=== PATIENT | female | born 1965 | race Caucasian/White ===

== ENCOUNTER 2019-04-09 18:28 | Emergency (ER) | payer MEDICAID ==
--- NOTE | 2019-04-09 19:06 | EDM.PDOC ---
ED HPI GENERAL MEDICAL PROBLEM - General Chief Complaint: ENT Problem Stated Complaint: tooth pain Time Seen by Provider: 04/09/19 18:50 Source of Information: Reports: Patient History Limitations: Reports: No Limitations - History of Present Illness INITIAL COMMENTS - FREE TEXT/NARRATIVE: Lorena is a 53-year-old female who presents today for evaluation and treatment of an infected tooth. She reports pain for the last few days. She reports pain and swelling to the left lower jaw. Reports that it is a "series of teeth ". That is causing her distress. She states that she is to have her bottom plate done but has been unable to afford this. Her last visit to dental was about 4 months ago. She reports subjective fevers, chills and nausea. She denies any vomiting. She has been taking [id number] Tylenol and Motrin with little relief. Reports that she is only on lisinopril for medications. Left Tooth/Teeth Pain Score (Numeric/FACES): 7 - Related Data Allergies Allergy/AdvReac Type Severity Reaction Status Date / Time amoxicillin Allergy Rash Verified 04/09/19 18:38 Penicillins Allergy Rash Verified 04/09/19 18:38 Sulfa (Sulfonamide Allergy Rash Verified 04/09/19 18:38 Antibiotics) Home Meds: Home Meds Chlorhexidine Gluconate [Peridex] 15 ml MM BID #1 mouthwash 04/09/19 [Rx] Clindamycin HCl 300 mg PO Q6H #40 capsule 04/09/19 [Rx] Lisinopril [Zestril] 10 mg PO DAILY 04/09/19 [History] Past Medical History Gastrointestinal History: Reports: GERD SAW BOSS History: Reports: Other (See Below) Other SAW BOSS History: - Past Surgical History Female Surgical History: Reports: Section Social & Family History - Tobacco Use Smoking Status *Q: Current Every Day Smoker Years of Tobacco use: 40 Packs/Tins Daily: 0.2 - Caffeine Use Caffeine Use: Reports: None - Recreational Drug Use Recreational Drug Use: No ED ROS ENT - Review of Systems Review Of Systems: See Below Constitutional: Reports: Fever, Chills HEENT: Reports: Other (left lower teeth pain and swelling; no bad taste in her mouth) GI/Abdominal: Reports: Nausea. Denies: Vomiting ED EXAM, ENT - Physical Exam Exam: See Below Exam Limited By: No Limitations General Appearance: Alert, WD/WN, No Apparent Distress Eye Exam: Bilateral Eye: Normal Inspection, PERRL Ears: Normal External Exam, Normal Canal, Hearing Grossly Normal, Normal TMs Nose: Normal Inspection Mouth/Throat: Normal Inspection, Dental Tenderness, Gum Swelling (and erythema) , Other (upper teeth absent, upper denture in place. Teeth 32-28 absent. # 22- 19 severe carries, no obvious abscess). No: Dental Abcess Respiratory/Chest: No Respiratory Distress, Lungs Clear, Normal Breath Sounds Cardiovascular: Normal Peripheral Pulses, Regular Rate, Rhythm, No Murmur Neurological: Alert, Oriented, Normal Cognition Psychiatric: Normal Affect, Normal Mood Skin: Warm, Dry, Normal Color Course - Vital Signs Last Recorded V/S: Last Vital Signs Temp 98.6 F 04/09/19 18:35 Pulse 77 04/09/19 18:35 Resp 16 04/09/19 18:35 BP 122/88 04/09/19 18:35 Pulse Ox 99 04/09/19 18:35 - Re-Assessments/Exams Free Text/Narrative Re-Assessment/Exam: 04/09/19 19:00 Patient searched on [place] [facility] RADAR OPERATOR/NAVIGATOR Aware. She was given a 30 day RX of oxycodone 15mg # 90 on 03-22-2019. She may use this for pain. She did not reprot this to myself when asked about meds. Also failed to mention the gabapentin she has been prescribed. Discharge instructions as documented. Departure - Departure Time of Disposition: 19:00 Disposition: Home, Self-Care 01 Condition: Good Clinical Impression: Dental caries extending into dentin - Discharge Information *PRESCRIPTION DRUG MONITORING PROGRAM REVIEWED*: Yes *COPY OF PRESCRIPTION DRUG MONITORING REPORT IN PATIENT JEAN PIERRE: No Prescriptions: Chlorhexidine Gluconate [Peridex] 15 ml MM BID #1 mouthwash Clindamycin HCl 300 mg PO Q6H #40 capsule Referrals: PCP,None [Primary Care Provider] - Lillian Meléndez NP [Ordering Only Provider] - Forms: ED Department Discharge Additional Instructions: Clindamycin 1 Every 6 hours for 10 days. Take this with food. Recommend yogurt or probiotics to help reduce side effects. use The Peridex mouthwash swish and spit 15 mils twice a day. Swish for about 30 seconds Follow-up with a dentist as soon as you are able to. Utilize [id number] Tylenol and Motrin for pain relief. You may also try topical products such as clove oil or Orajel for additional pain relief. Please return to the ER if your symptoms change or worsen. Sepsis Event Note - Evaluation Sepsis Screening Result: No Definite Risk - Focused Exam Vital Signs: Vital Signs Temp Pulse Resp BP Pulse Ox 04/09/19 18:35 98.6 F 77 16 122/88 99 Date Exam was Performed: 04/09/19 Time Exam was Performed: 19:57
== END 2019-04-09 19:20 | disposition home or self-care (01) ==
LOC: JD.ED 18:28
DX: K02.9 Dental caries, unspecified (principal); F17.210 Nicotine dependence, cigarettes, uncomplicated; Z88.0 Allergy status to penicillin; Z88.2 Allergy status to sulfonamides; Z88.1 Allergy status to other antibiotic agents
CPT/HCPCS: 99282

== ENCOUNTER 2019-08-26 06:46 | Emergency (ER) | payer MEDICAID ==
[2019-08-26] MEDS ORDERED: HYDROmorphone 0.5 MG/0.5 ML Syringe IVPUSH ONE ×3 (07:18→09:28)
[2019-08-26] MEDS: Sodium Chloride 0.9% 10 ML Syringe FLUSH PRN ×2 (07:25→07:42)
[2019-08-26] MEDS ORDERED: Metoclopramide 10 MG/2 ML SDV IVPUSH ONE (07:34)
--- NOTE | 2019-08-26 08:10 | CT ---
CT abdomen and pelvis Technique: Multiple axial sections were obtained from above the dome of the diaphragm inferiorly through the pubic symphysis. Intravenous and oral contrast was not utilized. Study has been performed as a ureteral stone protocol. Findings: Inflammatory type change is seen around the left kidney. Left kidney collecting system is dilated. These findings are caused by a 4 mm obstructing stone located within the left UPJ. No other ureteral calculi are seen within the right or left ureters. Small nonobstructing calculus is noted within the lower right kidney measuring less than 5 mm in size. No other renal calculi are seen. Other findings: Visualized lung bases shows a nodule within the right base measuring 7 mm. Noncontrast appearance of the liver and spleen appears within normal limits. Adrenal glands show no nodule. Pancreas is normal. Gallbladder contains no calcified gallstones. Aorta shows no aneurysm. No retroperitoneal adenopathy or mesenteric abnormalities are seen. Appendix is seen which is normal in size. No pelvic mass or adenopathy is seen. No free fluid is seen. Bone window settings were reviewed. No acute osseous finding is seen. Impression: 1. Findings compatible with obstructing proximal left ureteral stone located at the UPJ measuring 4 mm. 2. 7 mm nodule within the right lung base. Recommend follow-up noncontrast chest CT in 6 months which would occur in February or March,. 3. Nonobstructing stone within the inferior right kidney measuring less than 5 mm. Diagnostic code #3 This report was dictated in MDT
[2019-08-26] MEDS ORDERED: Ketorolac 30 MG/ML SDV IVPUSH ONE (08:56)
--- NOTE | 2019-08-26 09:39 | EDM.PDOC ---
ED HPI GENERAL MEDICAL PROBLEM - General Chief Complaint: Flank Pain Stated Complaint: [facility] Time Seen by Provider: 08/26/19 07:10 Source of Information: Reports: Patient, RN Notes Reviewed - History of Present Illness INITIAL COMMENTS - FREE TEXT/NARRATIVE: 53 yr old female with onset of L back pain about 5 to 6 hrs ago. Continues severe cramping pain L back at rest, not worse or better with movement. Has vomited once, still nauseated. No fever, chills or voiding sx. Left Flank Pain Score (Numeric/FACES): 10 - Related Data Allergies Allergy/AdvReac Type Severity Reaction Status Date / Time amoxicillin Allergy Severe Rash Verified 08/26/19 06:51 Penicillins Allergy Severe Rash Verified 08/26/19 06:51 Sulfa (Sulfonamide Allergy Severe Rash Verified 08/26/19 06:51 Antibiotics) Home Meds: Home Meds lisinopriL [Zestril] 10 mg PO DAILY 04/09/19 [History] Acetaminophen/oxyCODONE [Percocet 325-5 MG] 1 each PO Q6HR PRN #14 tab 08/26/19 [Rx] Gabapentin [Neurontin] 400 mg PO TID 08/26/19 [History] Omeprazole 20 mg PO DAILY 08/26/19 [History] Ondansetron [Zofran ODT] 4 mg PO Q6H PRN #10 tab.dis 08/26/19 [Rx] Sertraline HCl 100 mg PO DAILY 08/26/19 [History] Past Medical History Gastrointestinal History: Reports: GERD 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 Denies: Fever, Chills HEENT: Reports: No Symptoms Respiratory: Reports: No Symptoms Cardiovascular: Reports: No Symptoms GI/Abdominal: Reports: Nausea, Vomiting. Denies: Abdominal Pain, Hematochezia, Melena Musculoskeletal: Reports: No Symptoms Skin: Reports: No Symptoms Neurological: Reports: No Symptoms ED EXAM, RENAL/ - Physical Exam Exam: See Below General Appearance: Alert, Moderate Distress Eye Exam: Bilateral Eye: PERRL Head: Atraumatic Neck: Supple Respiratory/Chest: No Respiratory Distress, Lungs Clear, Normal Breath Sounds Cardiovascular: Regular Rate, Rhythm GI/Abdominal: Soft, Non-Tender Back Exam: CVA Tenderness (L) Extremities: Normal Inspection, Normal Range of Motion Neurological: Alert, Oriented, No Motor/Sensory Deficits Skin Exam: Warm, Dry, Normal Color Course - Vital Signs Last Recorded V/S: Last Vital Signs Temp 99.0 F 08/26/19 06:54 Pulse 99 08/26/19 06:54 Resp 19 08/26/19 06:54 BP 144/90 H 08/26/19 06:54 Pulse Ox 100 08/26/19 06:54 - Orders/Labs/Meds Orders: Active Orders 24 hr Category Date Time Status Peripheral IV Care [RC] . DIRECTED Care 08/26/19 07:19 Active Sodium Chloride 0.9% [Saline Flush] Med 08/26/19 07:18 Active 10 ml FLUSH ASDIRECTED PRN Peripheral IV Insertion Adult [OM.PC] Stat Oth 08/26/19 07:19 Ordered Medication Orders Sodium Chloride (Saline Flush) 10 ml FLUSH ASDIRECTED PRN PRN Reason: Keep Vein Open Last Admin: 08/26/19 07:42 Dose: 10 ml Admin: 08/26/19 07:25 Dose: 10 ml Labs: Laboratory Tests 08/26/19 08/26/19 08/26/19 Range/Units 07:32 07:32 08:10 WBC 15.73 H (3.98-10.04) K/mm3 RBC 4.66 (3.98-5.22) M/mm3 Hgb 14.5 (11.2-15.7) gm/dl Hct 44.6 (34.1-44.9) % MCV 95.7 H (79.4-94.8) fl MCH 31.1 (25.6-32.2) pg MCHC 32.5 (32.2-35.5) g/dl RDW Std Deviation 45.8 (36.4-46.3) fL Plt Count 183 (182-369) K/mm3 MPV 11.6 (9.4-12.3) fl Neut % (Auto) 85.6 H (34.0-71.1) % Lymph % (Auto) 4.8 L (19.3-51.7) % [place] % (Auto) 8.7 (4.7-12.5) % Eos % (Auto) 0.3 L (0.7-5.8) Baso % (Auto) 0.3 (0.1-1.2) % Neut # (Auto) 13.46 H (1.56-6.13) K/mm3 Lymph # (Auto) 0.76 L (1.18-3.74) K/mm3 [place] # (Auto) 1.37 H (0.24-0.36) K/mm3 Eos # (Auto) 0.05 (0.04-0.36) K/mm3 Baso # (Auto) 0.05 (0.01-0.08) K/mm3 Manual Slide Review Abnormal smear Sodium 146 H (136-145) mEq/L Potassium 3.5 (3.5-5.1) mEq/L Chloride 110 H (98-107) mEq/L Carbon Dioxide 27 (21-32) mEq/L Anion Gap 12.5 (5-15) BUN 13 (7-18) mg/dL Creatinine 1.2 H (0.55-1.02) mg/dL Est Cr Clr Drug Dosing 48.79 mL/min Estimated GFR (MDRD) 47 (>60) mL/min BUN/Creatinine Ratio 10.8 L (14-18) Glucose 119 H (74-106) mg/dL Calcium 8.9 (8.5-10.1) mg/dL Total Bilirubin 0.4 (0.2-1.0) mg/dL AST 18 (15-37) U/L ALT 19 (14-59) U/L Alkaline Phosphatase 76 (46-116) U/L Total Protein 6.8 (6.4-8.2) g/dl Albumin 3.5 (3.4-5.0) g/dl Globulin 3.3 gm/dL Albumin/Globulin Ratio 1.1 (1-2) Urine Color Yellow (Yellow) Urine Appearance Slt cloudy H (Clear) Urine pH 8.5 H (5.0-8.0) Ur Specific [place] 1.015 (1.005-1.030) Urine Protein 1+ H (Negative) Urine Glucose (UA) Negative (Negative) Urine Ketones Negative (Negative) Urine Occult Blood 2+ H (Negative) Urine Nitrite Negative (Negative) Urine Bilirubin Negative (Negative) Urine Urobilinogen 0.2 (0.2-1.0) Ur Leukocyte Esterase Negative (Negative) Urine RBC 10-20 H (0-5) /hpf Urine WBC 0-5 (0-5) /hpf Ur Squamous Epith Cells 0-5 (0-5) /hpf Amorphous Sediment Many H (NOT SEEN) /hpf Urine Bacteria Moderate H (FEW) /hpf Urine Mucus Few (FEW) /hpf Meds: Medications Generic Name Dose Route Start Last Admin Trade Name Freq PRN Reason Stop Dose Admin Sodium Chloride 10 ml 08/26/19 07:18 08/26/19 07:42 Saline Flush FLUSH 10 ml ASDIRECTED PRN Administration Keep Vein Open Discontinued Medications Generic Name Dose Route Start Last Admin Trade Name Freq PRN Reason Stop Dose Admin Hydromorphone HCl 0.5 mg 08/26/19 07:18 08/26/19 07:24 Dilaudid IVPUSH 08/26/19 07:19 0.5 mg ONETIME ONE Administration Hydromorphone HCl 0.5 mg 08/26/19 08:00 08/26/19 08:09 Dilaudid IVPUSH 08/26/19 08:01 0.5 mg ONETIME ONE Administration Hydromorphone HCl 0.5 mg 08/26/19 09:28 Dilaudid IVPUSH 08/26/19 09:29 ONETIME ONE Ketorolac Tromethamine 30 mg 08/26/19 08:56 08/26/19 09:01 Toradol IVPUSH 08/26/19 08:57 30 mg ONETIME ONE Administration Metoclopramide HCl 5 mg 08/26/19 07:34 08/26/19 07:41 Reglan IVPUSH 08/26/19 07:35 5 mg ONETIME ONE Administration - Re-Assessments/Exams Free Text/Narrative Re-Assessment/Exam: 08/26/19 09:42 4 mm stone L ureter, see Radiology report for details. Relatively good relief of pain after multiple meds IV. Discharge instr. as documented. Departure - Departure Time of Disposition: 09:34 Disposition: Home, Self-Care 01 Condition: Fair Clinical Impression: Kidney stone, Ureteric colic - Discharge Information Prescriptions: Acetaminophen/oxyCODONE [Percocet 325-5 MG] 1 each PO Q6HR PRN #14 tab PRN Reason: Pain Ondansetron [Zofran ODT] 4 mg PO Q6H PRN #10 tab.dis PRN Reason: Nausea/Vomiting Referrals: PCP,None [Primary Care Provider] - Forms: ED Department Discharge Additional Instructions: Strain all urine to watch for stone. Drink plenty of water to maintain hydration. Tylenol q 6 to 8 hr if needed for mild to moderate pain or percocet q 6 to 8 hr if needed for severe pain. Follow up with your regular medical provider if you have not passed this stone by Thursday. Return to ED as needed. Sepsis Event Note - Evaluation Sepsis Screening Result: No Definite Risk - Focused Exam Vital Signs: Vital Signs Temp Pulse Resp BP Pulse Ox 08/26/19 06:54 99.0 F 99 19 144/90 H 100 Date Exam was Performed: 08/26/19 Time Exam was Performed: 09:40 - My Orders Last 24 Hours: My Active Orders 08/26/19 07:18 Sodium Chloride 0.9% [Saline Flush] 10 ml FLUSH ASDIRECTED PRN 08/26/19 07:19 Peripheral IV Care [RC] . DIRECTED Peripheral IV Insertion Adult [OM.PC] Stat - Assessment/Plan Last 24 Hours: My Active Orders 08/26/19 07:18 Sodium Chloride 0.9% [Saline Flush] 10 ml FLUSH ASDIRECTED PRN 08/26/19 07:19 Peripheral IV Care [RC] . DIRECTED Peripheral IV Insertion Adult [OM.PC] Stat
== END 2019-08-26 10:04 | disposition home or self-care (01) ==
LOC: JD.ED 06:46
DX: N20.2 Calculus of kidney with calculus of ureter (principal); K21.9 Gastro-esophageal reflux disease without esophagitis; F17.210 Nicotine dependence, cigarettes, uncomplicated; Z88.1 Allergy status to other antibiotic agents; Z88.0 Allergy status to penicillin; Z88.2 Allergy status to sulfonamides; Z79.899 Other long term (current) drug therapy
CPT/HCPCS: 36415; 74176; 80053; 81001; 85025; 96374; 96375; 96376; 99285; J1170; J1885; J2765; 99284